=== PATIENT | female | born 1945 | race Caucasian/White ===

== ENCOUNTER → 2020-02-07 | Outpatient (CLI) | payer MEDICARE ==
[~2020-02-07] MED LIST: ASPI-875 PO; ATOR20TA66 PO; ATOR80TA75 PO; BNZ40T PO; DILT120C85 PO; DILT120T5 PO; HCT25T PO; HYDR-34 PO; HYDR12.56 PO; MECL-124 PO; OMEG1CAP51 PO; OMEP20CA12 PO; POTA10TA10 PO; SIMV80TA3 PO
--- NOTE | 2020-02-07 14:26 | Diagnostic Imaging Report ---
INDICATION: History of Covid positivity, 6 weeks ago, now with bibasilar crackles. PA and lateral chest obtained at 12:19 p.m. and compared to 04/04/2015. FINDINGS: Heart and mediastinal silhouette are normal in appearance. Lungs show no focal infiltrate. There is no pneumothorax or pleural fluid. There are surgical clips over the axillary regions and in the epigastric region. There is a minimal hiatal hernia. IMPRESSION: No discrete focal infiltrate or pneumothorax or pleural fluid. Dictated by: Dictated on workstation # [id number]
== END ==
LOC: RAD 11:58
PROVIDERS: ATTEND Family Medicine
DX: R09.89 Other specified symptoms and signs involving the circulatory and respiratory systems (principal); Z86.19 Personal history of other infectious and parasitic diseases
CPT/HCPCS: 71046

== ENCOUNTER → 2021-02-10 | Outpatient (CLI) | payer MEDICARE | LOC: WOUNDCARE 09:12 | PROVIDERS: ATTEND Family Medicine | DX: T81.31XA Disruption of external operation (surgical) wound, not elsewhere classified, initial encounter (principal); I73.00 Raynaud's syndrome without gangrene; I70.232 Atherosclerosis of native arteries of right leg with ulceration of calf; L03.115 Cellulitis of right lower limb; L97.212 Non-pressure chronic ulcer of right calf with fat layer exposed; I89.0 Lymphedema, not elsewhere classified | CPT/HCPCS: A6260; G0463; 99214 ==

== ENCOUNTER → 2021-02-10 | Outpatient (CLI) | payer MEDICARE ==
[2021-02-10 12:07] LABS: BASOPHILS # (AUTO) 0.1 10^3/uL (0.0-0.1); BASOPHILS % (AUTO) 0 % (0-10); EOSINOPHILS # (AUTO) 0.4 10^3/uL (0.0-0.3); EOSINOPHILS % (AUTO) 3 % (0-10); HEMATOCRIT 40 % (35-52); HEMOGLOBIN 12.7 g/dL (11.5-16.0); LYMPHOCYTES # (AUTO) 2.5 10^3/uL (1.0-4.0); LYMPHOCYTES % (AUTO) 19 % (12-44); MEAN CORPUSCULAR HEMOGLOBIN 26 pg (25-34); MEAN CORPUSCULAR HGB CONC 32 g/dL (32-36); MEAN CORPUSCULAR VOLUME 82 fL (80-99); MEAN PLATELET VOLUME 10.6 fL (9.0-12.2); MONOCYTES % (AUTO) 7 % (0-12); NEUTROPHILS # (AUTO) 9.4 10^3/uL (1.8-7.8); NEUTROPHILS % (AUTO) 70 % (42-75); PLATELET COUNT 361 10^3/uL (130-400); WHITE BLOOD COUNT 13.4 10^3/uL (4.3-11.0)
[2021-02-10 12:31] LABS: ALBUMIN 3.9 GM/DL (3.2-4.5); BILIRUBIN,TOTAL 0.2 MG/DL (0.1-1.0); CALCIUM 9.4 MG/DL (8.5-10.1); CREATININE SERUM 1.19 MG/DL (0.60-1.30); POTASSIUM 4.4 MMOL/L (3.6-5.0); TOTAL PROTEIN 8.3 GM/DL (6.4-8.2)
== END ==
LOC: LAB 11:29
PROVIDERS: ATTEND Family Medicine
DX: L97.212 Non-pressure chronic ulcer of right calf with fat layer exposed (principal)
CPT/HCPCS: 36415; 80053; 83036; 85025

== ENCOUNTER → 2021-02-17 | Outpatient (CLI) | payer MEDICARE | LOC: WOUNDCARE 10:19 | PROVIDERS: ATTEND Family Medicine | DX: T81.31XA Disruption of external operation (surgical) wound, not elsewhere classified, initial encounter (principal); I73.01 Raynaud's syndrome with gangrene; L03.115 Cellulitis of right lower limb; L97.212 Non-pressure chronic ulcer of right calf with fat layer exposed; I89.0 Lymphedema, not elsewhere classified | CPT/HCPCS: 11042; G0463 ==

== ENCOUNTER → 2021-02-24 | Outpatient (CLI) | payer MEDICARE | LOC: WOUNDCARE 08:44 | PROVIDERS: ATTEND Family Medicine | DX: T81.31XA Disruption of external operation (surgical) wound, not elsewhere classified, initial encounter (principal); L97.212 Non-pressure chronic ulcer of right calf with fat layer exposed; I73.00 Raynaud's syndrome without gangrene; L03.115 Cellulitis of right lower limb; I89.0 Lymphedema, not elsewhere classified; B96.29 Other Escherichia coli [E. coli] as the cause of diseases classified elsewhere | CPT/HCPCS: 11042; G0463 ==

== ENCOUNTER → 2021-03-03 | Outpatient (CLI) | payer MEDICARE | LOC: WOUNDCARE 09:30 | PROVIDERS: ATTEND Family Medicine | DX: T81.31XA Disruption of external operation (surgical) wound, not elsewhere classified, initial encounter (principal); I73.01 Raynaud's syndrome with gangrene; L03.115 Cellulitis of right lower limb; L97.212 Non-pressure chronic ulcer of right calf with fat layer exposed; I89.0 Lymphedema, not elsewhere classified; B96.29 Other Escherichia coli [E. coli] as the cause of diseases classified elsewhere | CPT/HCPCS: 11042; 97607; A9272; G0463 ==

== ENCOUNTER → 2021-03-04 | Outpatient (CLI) | payer MEDICARE | LOC: WOUNDCARE 09:53 | PROVIDERS: ATTEND Family Medicine | DX: S81.801A Unspecified open wound, right lower leg, initial encounter (principal); I10 Essential (primary) hypertension | CPT/HCPCS: 97607; A9272; G0463 ==

== ENCOUNTER → 2021-03-06 | Outpatient (CLI) | payer MEDICARE | LOC: WOUNDCARE 08:53 | PROVIDERS: ATTEND Family Medicine | DX: S81.801A Unspecified open wound, right lower leg, initial encounter (principal); I10 Essential (primary) hypertension; I73.00 Raynaud's syndrome without gangrene | CPT/HCPCS: 97607; G0463 ==

== ENCOUNTER → 2021-03-10 | Outpatient (CLI) | payer MEDICARE ==
--- NOTE | 2021-03-10 11:05 | Diagnostic Imaging Report ---
Right tibia and fibula. INDICATION: Leg pain AP and lateral views were obtained. There are no prior studies available for comparison. On the AP view there is a linear lucency extending through the medial aspect of the midshaft of the fibula. There is no corresponding abnormality seen on the lateral view and I suspect this finding may be due to a vessel coursing through the bone. The possibility that there is a nondisplaced fracture in this area would be less likely but clinical follow-up is recommended. No other fracture or acute bony abnormality is noted. 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 Moderate degenerative changes involving the ankle joint are noted as well. The soft tissues are unremarkable. IMPRESSION: 1. The linear lucency extending obliquely through the midportion of the fibula is more likely due to a nutrient vessel than to a nondisplaced fracture. Clinical follow-up is recommended however. 2. There is no acute bony abnormality noted otherwise. Dictated by: Dictated on workstation # [id number]
== END ==
LOC: RAD 09:22
PROVIDERS: ATTEND Family Medicine
DX: T81.31XA Disruption of external operation (surgical) wound, not elsewhere classified, initial encounter (principal)
CPT/HCPCS: 36415; 73590; 85652; 86141

== ENCOUNTER → 2021-03-10 | Outpatient (CLI) | payer MEDICARE | LOC: WOUNDCARE 08:25 | PROVIDERS: ATTEND Family Medicine | DX: T81.31XA Disruption of external operation (surgical) wound, not elsewhere classified, initial encounter (principal); L97.212 Non-pressure chronic ulcer of right calf with fat layer exposed; I73.00 Raynaud's syndrome without gangrene; L03.115 Cellulitis of right lower limb; L97.512 Non-pressure chronic ulcer of other part of right foot with fat layer exposed; I89.0 Lymphedema, not elsewhere classified; B96.29 Other Escherichia coli [E. coli] as the cause of diseases classified elsewhere | CPT/HCPCS: 11042; 97607; A9272; G0463 ==

== ENCOUNTER → 2021-03-13 | Outpatient (CLI) | payer MEDICARE | LOC: WOUNDCARE 08:26 | PROVIDERS: ATTEND Family Medicine | DX: L97.212 Non-pressure chronic ulcer of right calf with fat layer exposed (principal); I73.00 Raynaud's syndrome without gangrene; I10 Essential (primary) hypertension | CPT/HCPCS: 29581; 97607; A9272; G0463 ==

== ENCOUNTER → 2021-03-17 | Outpatient (CLI) | payer MEDICARE | LOC: WOUNDCARE 08:30 | PROVIDERS: ATTEND Family Medicine | DX: T81.31XA Disruption of external operation (surgical) wound, not elsewhere classified, initial encounter (principal); I73.01 Raynaud's syndrome with gangrene; L97.212 Non-pressure chronic ulcer of right calf with fat layer exposed; I89.0 Lymphedema, not elsewhere classified | CPT/HCPCS: 11042; 97607; A6021; A9272; G0463 ==

== ENCOUNTER → 2021-03-20 | Outpatient (CLI) | payer MEDICARE | LOC: WOUNDCARE 08:53 | PROVIDERS: ATTEND Family Medicine | DX: I96 Gangrene, not elsewhere classified (principal); L97.212 Non-pressure chronic ulcer of right calf with fat layer exposed; I10 Essential (primary) hypertension | CPT/HCPCS: 97607; G0463 ==

== ENCOUNTER → 2021-03-24 | Outpatient (CLI) | payer MEDICARE | LOC: WOUNDCARE 08:29 | PROVIDERS: ATTEND Family Medicine | DX: T81.31XA Disruption of external operation (surgical) wound, not elsewhere classified, initial encounter (principal); I73.01 Raynaud's syndrome with gangrene; L97.212 Non-pressure chronic ulcer of right calf with fat layer exposed; I89.0 Lymphedema, not elsewhere classified | CPT/HCPCS: 11042; 97607; A6234; A9272; G0463 ==

== ENCOUNTER → 2021-03-27 | Outpatient (CLI) | payer MEDICARE | LOC: WOUNDCARE 08:55 | PROVIDERS: ATTEND Family Medicine | DX: T81.49XA Infection following a procedure, other surgical site, initial encounter (principal); I10 Essential (primary) hypertension; I73.00 Raynaud's syndrome without gangrene; L97.212 Non-pressure chronic ulcer of right calf with fat layer exposed | CPT/HCPCS: 97607; A6234; G0463 ==

== ENCOUNTER → 2021-03-31 | Outpatient (CLI) | payer MEDICARE | LOC: WOUNDCARE 08:56 | PROVIDERS: ATTEND Family Medicine | DX: T81.31XA Disruption of external operation (surgical) wound, not elsewhere classified, initial encounter (principal); L97.212 Non-pressure chronic ulcer of right calf with fat layer exposed; I73.00 Raynaud's syndrome without gangrene; I89.0 Lymphedema, not elsewhere classified | CPT/HCPCS: 11042; 97607; A9272; G0463 ==

== ENCOUNTER → 2021-04-03 | Outpatient (CLI) | payer MEDICARE | LOC: WOUNDCARE 08:25 | PROVIDERS: ATTEND Family Medicine | DX: S81.801A Unspecified open wound, right lower leg, initial encounter (principal); L97.212 Non-pressure chronic ulcer of right calf with fat layer exposed; I10 Essential (primary) hypertension | CPT/HCPCS: 97607; A6234; G0463 ==

== ENCOUNTER → 2021-04-07 | Outpatient (CLI) | payer MEDICARE | LOC: WOUNDCARE 08:29 | PROVIDERS: ATTEND Family Medicine | DX: T81.31XA Disruption of external operation (surgical) wound, not elsewhere classified, initial encounter (principal); I73.00 Raynaud's syndrome without gangrene; L97.212 Non-pressure chronic ulcer of right calf with fat layer exposed; I89.0 Lymphedema, not elsewhere classified | CPT/HCPCS: 97607; A9272; G0463 ==

== ENCOUNTER → 2021-04-14 | Outpatient (CLI) | payer MEDICARE | LOC: WOUNDCARE 08:25 | PROVIDERS: ATTEND Family Medicine | DX: I73.00 Raynaud's syndrome without gangrene (principal); I89.0 Lymphedema, not elsewhere classified | CPT/HCPCS: 99212 ==